=== PATIENT | female | born 1955 | race Caucasian/White ===

== ENCOUNTER → 2024-04-16 13:34 | Outpatient (REF) | payer MEDICARE, OTHER, SELFPAY | LOC: HWRAD 13:34 | PROVIDERS: ATTENDING PHYSICIAN Internal Medicine | DX: Z12.31 Encounter for screening mammogram for malignant neoplasm of breast (principal); M81.0 Age-related osteoporosis without current pathological fracture; K40.90 Unilateral inguinal hernia, without obstruction or gangrene, not specified as recurrent; R22.41 Localized swelling, mass and lump, right lower limb | CPT/HCPCS: 76882 ==

== ENCOUNTER → 2024-06-24 08:05 | Outpatient (REF) | payer MEDICARE, OTHER, SELFPAY | LOC: REG 08:05 | PROVIDERS: ATTENDING PHYSICIAN Nurse Practitioner; FAMILY PHYSICIAN Internal Medicine | DX: K41.90 Unilateral femoral hernia, without obstruction or gangrene, not specified as recurrent (principal) | CPT/HCPCS: 93005 ==